=== PATIENT | female | born 1995 | race Caucasian/White ===

== ENCOUNTER 2020-01-17 11:59 | Emergency (ER) | payer BC ==
[2020-01-17 12:05] VITALS: BP 123/68
--- NOTE | 2020-01-17 12:18 | ER Document Report ---
ED Medical Screen (RME) - General Chief Complaint: Abdominal Pain Stated Complaint: ABDOMINAL PAIN,LOW BACK PAIN Time Seen by Provider: 01/17/20 12:17 Mode of Arrival: Ambulatory Information source: Patient Notes: This is a 24-year-old female who states that she has had pain to her right back and right hip which is been ongoing for approximately 2 weeks. 2 weeks ago she did not fact have an IUD placed she felt that the discomfort she is experience may be related to that she did follow back up with a [facility]IREMENT ADMINISTRATOR they did do an ultrasound they did verify placement they did state that everything was okay they did a urine in the office they felt that everything was normal they gave her Percocet for pain with no real definitive diagnosis per the patient. The pain medication is no longer working. Physical Exam - Vital signs Vitals: Temp Pulse Resp BP Pulse Ox 98.6 F 81 16 123/68 97 01/17/20 12:04 01/17/20 12:04 01/17/20 12:04 01/17/20 12:04 01/17/20 12:04 Course - Vital Signs Vital signs: Temp Pulse Resp BP Pulse Ox 98.6 F 81 16 123/68 97 01/17/20 12:04 01/17/20 12:04 01/17/20 12:04 01/17/20 12:04 01/17/20 12:04
[2020-01-17 12:56] LABS: ABSOLUTE BASOPHILS # (AUTO) 0.1 10^3/uL (0.0-0.2); ABSOLUTE EOSINOPHILS # (AUTO) 0.1 10^3/uL (0.0-0.6); ABSOLUTE LYMPHOCYTES (AUTO) 2.2 10^3/uL (0.5-4.7); ABSOLUTE MONOCYTES (AUTO) 0.6 10^3/uL (0.1-1.4); ABSOLUTE NEUT (AUTO) 3.3 10^3/uL (1.7-8.2); BASOPHILS % (AUTO) 0.8 % (0-2); EOSINOPHILS % (AUTO) 0.9 % (0-6); HEMATOCRIT 40.6 % (36.0-47.0); MEAN CORPUSCULAR HEMOGLOBIN 31.1 pg (27.0-33.4); MEAN CORPUSCULAR HGB CONC 34.5 g/dL (32.0-36.0); MEAN CORPUSCULAR VOLUME 90 fl (80-97); MONOCYTES % (AUTO) 9.8 % (3-13); PLATELET COUNT 222 10^3/uL (150-450); RED CELL DISTRIBUTION WIDTH 12.8 % (11.5-14.0); SEGMENTED NEUTROPHILS % (AUTO) 53.5 % (42-78); TOTAL CELLS COUNTED % (AUTO) 100 %; WHITE BLOOD COUNT 6.2 10^3/uL (4.0-10.5)
[2020-01-17 13:05] LABS: APPEARANCE,URINE SLIGHTLY-CLOUDY; BILIRUBIN,URINE NEGATIVE (NEGATIVE); COLOR,URINE YELLOW; GLUCOSE, URINE NEGATIVE (NEGATIVE); KETONES,URINE NEGATIVE (NEGATIVE); LEUKOCYTE ESTERASE,URINE TRACE (NEGATIVE); NITRITE,URINE NEGATIVE (NEGATIVE); PROTEIN,URINE NEGATIVE (NEGATIVE); URINE SPECIFIC GRAVITY 1.023; UROBILINOGEN,URINE NEGATIVE mg/dL (<2.0)
[2020-01-17 13:17] LABS: ALBUMIN 4.3 g/dL (3.5-5.0); ALKALINE PHOSPHATASE 51 U/L (38-126); ANION GAP 7 (5-19); ASPARTATE AMINO TRANSFERASE 24 U/L (14-36); BILIRUBIN,TOTAL 0.3 mg/dL (0.2-1.3); BLOOD UREA NITROGEN 14 mg/dL (7-20); CALCIUM 9.1 mg/dL (8.4-10.2); CARBON DIOXIDE 28 mmol/L (22-30); CHLORIDE 105 mmol/L (98-107); GLUCOSE 95 mg/dL (75-110); POTASSIUM 4.4 mmol/L (3.6-5.0); TOTAL PROTEIN 7.7 g/dL (6.3-8.2)
[2020-01-17] MEDS ORDERED: MORPHINE SULFATE 10 MG/ML INJ IV ONE (13:47)
[2020-01-17] MEDS ORDERED: ONDANSETRON HCL INJ/PF 4 MG/2 ML SDV IV ONE (13:48)
[2020-01-17] MEDS ORDERED: NORMAL SALINE 1000 ML 1,000 ML IV ONE (13:48)
--- NOTE | 2020-01-17 15:53 | RADIOLOGY REPORT (SQ) ---
EXAM DESCRIPTION: CT ABD/PELVIS WITH IV ONLY IMAGES COMPLETED DATE/TIME: 01/17/2020 3:22 pm REASON FOR STUDY: right flank pain/hematuria COMPARISON: None. TECHNIQUE: CT scan of the abdomen and pelvis performed using helical scanning technique with dynamic intravenous contrast injection. No oral contrast. Images reviewed with lung, soft tissue, and bone windows. Reconstructed coronal and sagittal MPR images reviewed. Delayed images for evaluation of the urinary system also acquired. All images stored on PACS. All CT scanners at this facility use dose modulation, iterative reconstruction, and/or weight based d osing when appropriate to reduce radiation dose to as low as reasonably achievable (ALARA). [facility]: Dose Right [facility]: CareDose [facility]: Dose Right [facility]: Teradose 4D [facility]: GlobeIn CONTRAST TYPE AND DOSE: contrast/concentration: Isovue 350.00 mmol/ml; Total Contrast Delivered: 54. 6 ml; Total Saline Delivered: 62.3 ml 98 mL Omnipaque 350- low osmolar. RENAL FUNCTION: BUN 14, creatinine 0.77 RADIATION DOSE: CT Rad equipment meets quality standard of care and radiation dose reduction techniq ues were employed. CTDIvol: 11.2 - 15.7 mGy. DLP: 1343 mGy-cm.. LIMITATIONS: None. FINDINGS: LOWER CHEST: No significant findings. No nodules or infiltrates. LIVER: Hepatomegaly. No masses. No dilated ducts. SPLEEN: Normal size. No focal lesions. PANCREAS: No masses. No significant calcifications. No adjacent inflammation or peripancreatic fluid collections. Pancreatic duct not dilated. GALLBLADDER: No identified stones by CT criteria. No inflammatory changes to suggest cholecystitis. ADRENAL GLANDS: No significant masses or asymmetry. RIGHT KIDNEY AND URETER: No solid masses. No significant calcifications. No hydronephrosis or hyd roureter. LEFT KIDNEY AND URETER: No solid masses. No significant calcifications. No hydronephrosis or hydr oureter. AORTA AND VESSELS: No aneurysm. No dissection. Renal arteries, SMA, celiac without stenosis. RETROPERITONEUM: No retroperitoneal adenopathy, hemorrhage or masses. BOWEL AND PERITONEAL CAVITY: Postsurgical changes of sleeve gastrectomy. No masses or inflammatory c hanges. No free fluid or peritoneal masses. APPENDIX: Normal. PELVIS: No mass. No free fluid. Normal bladder. ABDOMINAL WALL: No masses. No hernias. BONES: No significant or acute findings. OTHER: No other significant finding. IMPRESSION: No identifiable acute intra-abdominal findings. TECHNICAL DOCUMENTATION: JOB ID: [id number] Quality ID # [id number]: Final reports with documentation of one or more dose reduction techniques (e.g., Au tomated exposure control, adjustment of the mA and/or kV according to patient size, use of iterative reconstruction technique) 2010 [employer]- All Rights Reserved Reading location - IP/workstation name: [email or web address]
[2020-01-17] MEDS ORDERED: HYDROMORPHONE HCL INJ/PF 2 MG/ML AMPULE IV PRN (16:15)
[2020-01-17] MEDS ORDERED: DEXAMETHASONE SOD PHOS INJ 10 MG/1 ML VIAL IV ONE (16:36)
--- NOTE | 2020-01-17 17:04 | ER Document Report ---
Entered by MUKESH ELIAS SCRIBE 01/17/20 [id number] Acting as scribe for:AMBROSE TRENT MD ED GI/ - General Chief Complaint: Flank Pain Stated Complaint: ABDOMINAL PAIN,LOW BACK PAIN Time Seen by Provider: 01/17/20 12:17 Mode of Arrival: Ambulatory Information source: Patient Notes: This 24 year old female patient presents to the emergency department today with right lower back pain. Patient states she had an IUD placed x2 weeks ago and started to have back pain x5 days ago. Patient states she visited OBGYN yesterday, did an ultrasound, and was told the IUD was placed correctly. Patient states she was told to see a physician if she still had lower right back pain by Sunday and was given pain medication. Patient states her back pain is constant and radiates to her right lower abdomen. Patient also reports some numbness in her right leg. Denies any urinary symptoms, N/V/D, fever, chills, sweating, or abnormal bowel movement. Patient states she is still spotting after having the IUD placed, and denies abnormal vaginal discharge. - Related Data Allergies/Adverse Reactions: No Known Allergies Allergy (Unverified 01/17/20 12:19) Past Medical History - General Information source: Patient - Social History Smoking Status: Never Smoker Cigarette use (# per day): No Chew tobacco use (# tins/day): No Frequency of alcohol use: Occasional Drug Abuse: None Family History: Reviewed & Not Pertinent Neurological Medical History: Reports: Hx Migraine Past Surgical History: Reports: Hx Tonsillectomy, Other - Sleeve gastrectomy Review of Systems - Review of Systems Constitutional: See HPI. denies: Chills, Diaphoresis, Fever EENT: No symptoms reported Cardiovascular: No symptoms reported Respiratory: No symptoms reported Gastrointestinal: See HPI. denies: Diarrhea, Nausea, Vomiting Genitourinary: See HPI Female Genitourinary: See HPI. denies: Vaginal discharge Musculoskeletal: See HPI, Back pain - R lower Skin: No symptoms reported Hematologic/Lymphatic: No symptoms reported Neurological/Psychological: No symptoms reported -: Yes All other systems reviewed and negative Physical Exam - Vital signs Vitals: Temp Pulse Resp BP Pulse Ox 98.6 F 81 16 123/68 97 01/17/20 12:04 01/17/20 12:04 01/17/20 12:04 01/17/20 12:04 01/17/20 12:04 - General General appearance: Appears well, Alert - HEENT Head: Normocephalic, Atraumatic Eyes: Normal Pupils: PERRL - Respiratory Respiratory status: No respiratory distress Chest status: Nontender Breath sounds: Normal Chest palpation: Normal - Cardiovascular Rhythm: Regular Heart sounds: Normal auscultation Murmur: No - Abdominal Inspection: Normal - Soft Distension: No distension Bowel sounds: Normal Tenderness: Nontender - Back Notes: Nontender with palpation to the lower back bilaterally. - Extremities General upper extremity: Normal inspection. No: Edema General lower extremity: Normal inspection. No: Edema - Neurological Neuro grossly intact: Yes Cognition: Normal Orientation: AAOx4 Speech: Normal - Psychological Associated symptoms: Normal affect, Normal mood - Skin Skin Temperature: Warm Skin Moisture: Dry Skin Color: Normal Course - Re-evaluation Re-evalutation: 01/17/20 16:54 Patient still complains of radicular type pain around the elbow 3 4 distribution radiating numbness to the anterior thigh and pain in the back at the level of L3-4-5. CT scan of abdomen and pelvis with IV contrast only shows no no intra- abdominal acute process. Bones were read as normal within normal limits and no other acute findings was noted. Patient does have an IUD which she is suspic ious that it may be malposition inasmuch as her pain did not start until after she had received her IUD 2 weeks ago. However pain that patient is demonstrating an neuropathy in her right anterior thigh seems mostly related to neurogenic lumbar back disc problems and I have recommended patient be followed up with orthopedic physician regarding this problem. Patient is already seen her OB doctor who placed the IUD who confirmed that it was in the proper position by ultrasound a few days ago. - Vital Signs Vital signs: Temp Pulse Resp BP Pulse Ox 98.6 F 81 16 123/68 97 01/17/20 12:16 01/17/20 12:04 01/17/20 12:04 01/17/20 12:04 01/17/20 12:04 - Laboratory Result Diagrams: 01/17/20 12:30 01/17/20 12:30 Laboratory results interpreted by me: 01/17/20 12:30 Urine Blood MODERATE H Ur Leukocyte Esterase TRACE H - Diagnostic Test Radiology reviewed: Image reviewed, Reports reviewed Radiology results interpreted by me: 01/17/20 16:56 CT scan of abdomen and pelvis with IV contrast shows no acute intra-abdominal process. Incidentally patient is does have an IUD in the lower I have requested an addendum be made to the chart to indicate that IUD is in proper position. Bones were read and a general sense is within normal limits. Discharge - Discharge Clinical Impression: Acute low back pain, Right flank pain, Radiculopathy due to disorder of intervertebral disc of lumbar spine Condition: Good Disposition: HOME, SELF-CARE Instructions: Oral Narcotic Medication ([facility]) Additional Instructions: Radiculopathy Radiculopathy is irritation of a nerve. Sometimes this is called "pinched nerve." The pain can be sharp and stabbing, constant and dull, or burning in nature. The pain can occur in any area of the chest, shoulders, or arms. Sometimes the pain is provoked by coughing or moving. Radiculopathy can be caused by physical pressure on a nerve, such as a herniated disc or swollen joint in the spine. It can also be caused by viral infections within the nerve or by nerve damage due to diabetes or blood vessel disease. Radicular pain is treated with antiinflammatory medicine. Injections may help resistant cases, if we can identify a single nerve that's causing the pain. Surgery is usually not necessary. If symptoms do not improve with time, you may need additional testing, such as an MRI or EMG (electromyogram). Return if there is local weakness or numbness, shortness of breath, increasing pain, or other new symptoms. I am recommending that you follow-up with an orthopedic physician regarding your radicular pain around your lower back into your left thigh most likely this is not related to your most recent IUD implant and on CT scan we did not find any evidence for any urinary blockage or any other acute process within the abdomen. Prescriptions: Methylprednisolone [Medrol Dosepack (4 mg/Tab) 21 Tab/Dosepak] 4 mg PO ASDIR PRN #21 tab.ds.pk PRN Reason: Oxycodone HCl/Acetaminophen [Percocet 5-325 mg Tablet] 1 tab PO QID PRN #15 tab PRN Reason: severe pain I personally performed the services described in the documentation, reviewed and edited the documentation which was dictated to the scribe in my presence, and it accurately records my words and actions.
== END 2020-01-17 17:44 | disposition home or self-care (01) ==
LOC: ER 11:59
DX: M54.16 Radiculopathy, lumbar region (principal); M54.5 Low back pain; R10.9 Unspecified abdominal pain; Z97.5 Presence of (intrauterine) contraceptive device
CPT/HCPCS: 99284; 96361; 96374; 96375; 36415; 85025; 81025; 86140; 80053; 81001; 74177; J2270; J1170; J2405; J7030; J1100